=== PATIENT | male | born 1975 | race Caucasian/White ===

== ENCOUNTER → 2018-05-09 | Outpatient (CLI) | payer OTHER ==
--- NOTE | 2018-05-09 10:41 | RAD ---
EXAM: Maxillofacial bone CT without contrast. HISTORY: Sinusitis. TECHNIQUE: Computed tomographic images of the paranasal sinuses were obtained without contrast. *One or more of the following individualized dose reduction techniques were utilized for this examination: 1. Automated exposure control. 2. Adjustment of the mA and/or kV according to patient size. 3. Use of iterative reconstruction technique. COMPARISON: None. FINDINGS: There is minimal bilateral maxillary sinus mucosal thickening. There is a moderate left maxillary sinus mucous retention cyst. There is obstruction of the bilateral ostiomeatal units. There is no significant nasal septal deviation. There is no sinus wall erosion or thickening. The orbits are unremarkable. The visualized portions of the brain and calvarium are unremarkable. The mastoid air cells are clear. The temporomandibular joints are intact. IMPRESSION: Minimal bilateral maxillary sinus mucosal thickening with obstruction of the ostiomeatal units and a superimposed left maxillary sinus mucous retention cyst. Electronically signed by: Molly Lang MD (05/09/2018 10:39 AM) [id number]
== END | disposition home or self-care (01) ==
LOC: CT 09:59
PROVIDERS: ATTEND Family Medicine
DX: J34.1 Cyst and mucocele of nose and nasal sinus (principal)
CPT/HCPCS: 70486